=== PATIENT | female | born 1995 | race Caucasian/White ===

== ENCOUNTER → 2017-02-22 | Outpatient (CLI) | payer BC ==
--- NOTE | 2017-02-22 15:21 | US ---
EXAMINATION TYPE: US OB <= 14 wk fetus DATE OF EXAM: 02/22/2017 COMPARISON: NONE CLINICAL HISTORY: 21-year-old female O76.1 Absent Heart Tones. ; smoker EXAM PERFORMED: Transabdominal (TA) FINDINGS: EXAM MEASUREMENTS: GESTATIONAL AGE / DATING Physician Established: (14 weeks/4 days) EDC: 08/19/2017 Dates by LMP: (14 weeks/4 days) EDC: 08/19/2017 Dates by First Scan: No previous this is first scan Dates by Current Scan for: (8 weeks/3 days) EDC: 10/01/2017 MATERNAL ANATOMY Uterus: 10.1 x 6.1 x 5.6cm Right Ovary: 2.6 x 1.6 x 1.9cm Left Ovary: 2.1 x 1.4 x 1.4cm Post CDS / Adnexa: wnl Presence of free fluid: no Presence of corpus luteal cyst: in right ovary = 1.6 x 1.3 x 1.1cm Presence of subchorionic bleed: no An early expending amniotic sac is identified. GESTATION / SURVEY CRL: 1.9cm (8 weeks/3 days) Yolk Sac (normal less than 6mm): not seen Heart Rate: 174 bpm first assessment; 167bpm second assessment Rhythm: Normal IUP: Viable IUP Date of LMP: 11/12/2016 Beta HcG (if available): NA ROD GREASER NOTES: Single, live IUP,8 weeks/3 days, EDC: ; HR 174bpm. Tech findings called otf Azul at Dr Cantu's Office and patient was sent back to her office per order instructions. IMPRESSION: 1. Single live intrauterine with gestational age of 8 weeks 3 days by crown-rump length. Fi ndings are discordant with gestational age by LMP probably on the basis of inaccurate recall. Short i nterval follow-up can be considered especially given the heart rate at the upper limits of norm al. 2. Otherwise, complete survey is recommended at 18-20 weeks.
== END | disposition home or self-care (01) ==
LOC: RADUSWWP 14:15
PROVIDERS: ATTEND Obstetrics & Gynecology
DX: O76 Abnormality in fetal heart rate and rhythm complicating labor and delivery (principal); Z3A.08 8 weeks gestation of pregnancy
CPT/HCPCS: 76801

== ENCOUNTER 2017-03-29 21:33 | Emergency (ER) | payer BC ==
[2017-03-29 21:37] VITALS: RESP 18
--- NOTE | 2017-03-29 22:04 | ED ---
Female Urogenital HPI - General Chief complaint: Vaginal Bleeding Stated complaint: 13 weeks /Bleeding Time Seen by Provider: 03/29/17 22:03 Source: patient Mode of arrival: ambulatory Limitations: no limitations - History of Present Illness Initial comments: Patient 13 weeks , , presents with vaginal spotting for the past 4 hours. Patient states she noticed small amounts of blood when she has urinated over the past 4 hours. She denies recent sex or trauma to the genital region. Patient denies abdominal pain. Denies fevers, chills, vaginal discharge, diarrhea, constipation, blood in stools, pelvic pain. Complaint: vaginal bleeding - Related Data Home Medications Medication Instructions Recorded Confirmed Inw-Okug-Vvssd Acid 1 cap PO DAILY 03/29/17 03/29/17 [-U Capsule (formulary)] Allergies Allergy/AdvReac Type Severity Reaction Status Date / Time No Known Allergies Allergy Verified 03/29/17 22:04 Review of Systems ROS Statement: Those systems with pertinent positive or pertinent negative responses have been documented in the HPI. ROS Other: All systems not noted in ROS Statement are negative. Constitutional: Denies: fever, chills ENT: Denies: congestion Respiratory: Denies: cough, dyspnea Cardiovascular: Denies: chest pain, palpitations, dyspnea on exertion, syncope Endocrine: Denies: fatigue Gastrointestinal: Denies: abdominal pain, nausea, vomiting, diarrhea, constipation, hematemesis, melena, hematochezia Genitourinary: Reports: hematuria. Denies: urgency, dysuria, frequency, discharge Musculoskeletal: Denies: back pain Skin: Denies: rash, change in color Neurological: Denies: headache, weakness Past Medical History Past Medical History: No Reported History History of Any Multi-Drug Resistant Organisms: None Reported Past Surgical History: No Surgical Hx Reported Past Psychological History: No Psychological Hx Reported Smoking Status: Current every day smoker Past Alcohol Use History: None Reported Past Drug Use History: None Reported General Exam - General Exam Comments Initial Comments: Sitting up in bed smiling. No acute distress. Conversing normally. Calm, pleasant. Well appearing. Well-groomed well-dressed. Not appear in pain Limitations: no limitations General appearance: alert, in no apparent distress Head exam: Present: atraumatic, normocephalic Eye exam: Present: normal appearance, PERRL, EOMI ENT exam: Present: mucous membranes moist Neck exam: Present: normal inspection Respiratory exam: Present: normal lung sounds bilaterally. Absent: respiratory distress, wheezes, rales Cardiovascular Exam: Present: regular rate, normal rhythm GI/Abdominal exam: Present: soft, distended (Gravid). Absent: tenderness, guarding, rebound, rigid External exam: Present: normal external exam Speculum exam: Present: vaginal bleeding, other (Cervix closed. Appropriate tenderness. No masses appreciated. Small blood clot at cervical os. No active bleeding.). Absent: vaginal discharge Extremities exam: Present: normal inspection Back exam: Present: normal inspection Neurological exam: Present: alert, oriented X3 Psychiatric exam: Present: normal affect, normal mood Skin exam: Present: warm, dry, intact, normal color. Absent: rash, cyanosis, erythema, pallor Course Vital Signs 03/29/17 21:34 Temperature 98.2 F Pulse Rate 86 Respiratory 18 Rate Blood Pressure 121/71 O2 Sat by Pulse 100 Oximetry Medical Decision Making - Medical Decision Making Blood pressure within normal limits, heart rate within normal range. Patient very well appearing on examination. She states she had confirmed by ultrasound in late February. Hemoglobin 11. Spoke with lab, state patient's blood type is B-. Patient confirms she also thinks her blood type is B-. We'll give shot Rhogam UA negative for infection Bedside ultrasound done, movement intact, strong heartbeat visualized, shown to mother who confirm she sees strong heartbeat. Discussed results with patient. Discussed increased risk of spontaneous miscarriage. Pelvic rest until cleared by OB. Patient agrees to follow up with her OB physician tomorrow. Return to ER if new or worsening symptoms including increased bleeding, abdominal pain. All questions answered. - Lab Data Result diagrams: 03/29/17 22:25 03/29/17 22:25 Lab Results 03/29/17 03/29/17 03/29/17 Range/Units 22:25 22:25 22:25 WBC 7.0 (3.8-10.6) k/uL RBC 3.76 L (3.80-5.40) m/uL Hgb 11.1 L (11.4-16.0) gm/dL Hct 33.8 L (34.0-46.0) % MCV 89.8 (80.0-100.0) fL MCH 29.5 (25.0-35.0) pg MCHC 32.8 (31.0-37.0) g/dL RDW 12.8 (11.5-15.5) % Plt Count 250 (150-450) k/uL Neutrophils % 62 % Lymphocytes % 25 % Monocytes % 9 % Eosinophils % 2 % Basophils % 0 % Neutrophils # 4.3 (1.3-7.7) k/uL Lymphocytes # 1.7 (1.0-4.8) k/uL Monocytes # 0.7 (0-1.0) k/uL Eosinophils # 0.1 (0-0.7) k/uL Basophils # 0.0 (0-0.2) k/uL PT (9.0-12.0) sec INR (<1.2) APTT (22.0-30.0) sec Sodium 137 (137-145) mmol/L Potassium 3.7 (3.5-5.1) mmol/L Chloride 105 (98-107) mmol/L Carbon Dioxide 22 (22-30) mmol/L Anion Gap 10 mmol/L BUN 8 (7-17) mg/dL Creatinine 0.50 L (0.52-1.04) mg/dL Est GFR (MDRD) Af Amer >60 (>60 ml/min/1.73 sqM) Est GFR (MDRD) Non-Af >60 (>60 ml/min/1.73 sqM) Glucose 91 (74-99) mg/dL Calcium 9.6 (8.4-10.2) mg/dL Urine Color Urine Appearance (Clear) Urine pH (5.0-8.0) Ur Specific [place] (1.001-1.035) Urine Protein (Negative) Urine Glucose (UA) (Negative) Urine Ketones (Negative) Urine Blood (Negative) Urine Nitrite (Negative) Urine Bilirubin (Negative) Urine Urobilinogen (<2.0) mg/dL Ur Leukocyte Esterase (Negative) Urine RBC (0-5) /hpf Urine WBC (0-5) /hpf Ur Squamous Epith Cells (0-4) /hpf Blood Type B Negative Blood Type Confirm Blood Type Recheck CABO Indicated Antibody Screen NEGATIVE Spec Expiration Date 04/01/2017232403/29/17 03/29/17 03/29/17 Range/Units 22:25 23:15 23:35 WBC (3.8-10.6) k/uL RBC (3.80-5.40) m/uL Hgb (11.4-16.0) gm/dL Hct (34.0-46.0) % MCV (80.0-100.0) fL MCH (25.0-35.0) pg MCHC (31.0-37.0) g/dL RDW (11.5-15.5) % Plt Count (150-450) k/uL Neutrophils % % Lymphocytes % % Monocytes % % Eosinophils % % Basophils % % Neutrophils # (1.3-7.7) k/uL Lymphocytes # (1.0-4.8) k/uL Monocytes # (0-1.0) k/uL Eosinophils # (0-0.7) k/uL Basophils # (0-0.2) k/uL PT 9.8 (9.0-12.0) sec INR 1.0 (<1.2) APTT 23.4 (22.0-30.0) sec Sodium (137-145) mmol/L Potassium (3.5-5.1) mmol/L Chloride (98-107) mmol/L Carbon Dioxide (22-30) mmol/L Anion Gap mmol/L BUN (7-17) mg/dL Creatinine (0.52-1.04) mg/dL Est GFR (MDRD) Af Amer (>60 ml/min/1.73 sqM) Est GFR (MDRD) Non-Af (>60 ml/min/1.73 sqM) Glucose (74-99) mg/dL Calcium (8.4-10.2) mg/dL Urine Color Colorless Urine Appearance Clear (Clear) Urine pH 6.5 (5.0-8.0) Ur Specific [place] 1.002 (1.001-1.035) Urine Protein Negative (Negative) Urine Glucose (UA) Negative (Negative) Urine Ketones Negative (Negative) Urine Blood Small H (Negative) Urine Nitrite Negative (Negative) Urine Bilirubin Negative (Negative) Urine Urobilinogen <2.0 (<2.0) mg/dL Ur Leukocyte Esterase Negative (Negative) Urine RBC <1 (0-5) /hpf Urine WBC <1 (0-5) /hpf Ur Squamous Epith Cells 1 (0-4) /hpf Blood Type Blood Type Confirm B Negative Blood Type Recheck Antibody Screen Spec Expiration Date Disposition Clinical Impression: Threatened Disposition: HOME SELF-CARE Condition: Good Instructions: Threatened Miscarriage (ED) Additional Instructions: Follow-up with your OB doctor tomorrow. Return to ER if new or worsening symptoms including abdominal pain, increased bleeding. Referrals: None,Stated [Primary Care Provider] - 1-2 days
[2017-03-29 22:41] LABS: Basophils % (A) 0 %; Eosinophils # (A) 0.1 k/uL (0-0.7); Eosinophils % (A) 2 %; HCT 33.8 % (34.0-46.0); HGB 11.1 gm/dL (11.4-16.0); Lymphocytes # (A) 1.7 k/uL (1.0-4.8); Lymphocytes % (A) 25 %; MCH 29.5 pg (25.0-35.0); MCHC 32.8 g/dL (31.0-37.0); MCV 89.8 fL (80.0-100.0); Mean Platelet Volume 6.9; Monocytes # (A) 0.7 k/uL (0-1.0); Monocytes % (A) 9 %; Neutrophils # (A) 4.3 k/uL (1.3-7.7); Neutrophils % (A) 62 %; Platelet Count 250 k/uL (150-450); RBC 3.76 m/uL (3.80-5.40); RDW 12.8 % (11.5-15.5)
[2017-03-29 22:48] LABS: Anion Gap 10 mmol/L; Blood Urea Nitrogen 8 mg/dL (7-17); Calcium 9.6 mg/dL (8.4-10.2); Carbon Dioxide 22 mmol/L (22-30); Chloride 105 mmol/L (98-107); Glucose 91 mg/dL (74-99); Potassium 3.7 mmol/L (3.5-5.1); Sodium 137 mmol/L (137-145)
[2017-03-29 22:57] LABS: Partial Thromboplastin Time 23.4 sec (22.0-30.0); Prothrombin Time 9.8 sec (9.0-12.0)
[2017-03-29] MEDS ORDERED: Rhogam IMMUNE GLOBULIN 1,500 UNIT/1 ML IM ONE (23:19)
[2017-03-29 23:53] LABS: Appearance,Urine Clear (Clear); Bilirubin,Urine Negative (Negative); Blood,Urine Small (Negative); Color,Urine Colorless; Glucose,Urine (UA) Negative (Negative); Ketones,Urine Negative (Negative); Leukocyte Esterase,Urine Negative (Negative); Nitrite,Urine Negative (Negative); PH, Urine 6.5 (5.0-8.0); Protein,Urine Negative (Negative); RBC,Urine <1 /hpf (0-5); Specific Gravity,Urine 1.002 (1.001-1.035); Squamous Epithelial Cell,Urine 1 /hpf (0-4); Urobilinogen,Urine <2.0 mg/dL (<2.0); WBC,Urine <1 /hpf (0-5)
[2017-03-30 00:19] VITALS: BP 112/61; PULSE 72; TEMP 98
== END 2017-03-30 00:17 | disposition home or self-care (01) ==
LOC: EC 21:33
DX: O20.0 Threatened abortion (principal); O99.331 Smoking (tobacco) complicating pregnancy, first trimester; F17.200 Nicotine dependence, unspecified, uncomplicated; Z79.899 Other long term (current) drug therapy; Z67.21 Type B blood, Rh negative; Z3A.13 13 weeks gestation of pregnancy
CPT/HCPCS: 36415; 86900; 86901; 80048; 85025; 85610; 85730; 86850; 81001; 87086; 99284; 96372; 90384; J2791

== ENCOUNTER → 2017-03-30 | Outpatient (CLI) | payer BC ==
--- NOTE | 2017-03-30 16:34 | US ---
EXAMINATION TYPE: US OB <= 14 wk fetus DATE OF EXAM: 03/30/2017 COMPARISON: US CLINICAL HISTORY: Bleeding O46.92. Patient stated vaginal bleeding noted x 2 days and noted after li fting case of water: ; smoker. EXAM PERFORMED: Transabdominal (TA) EXAM MEASUREMENTS: GESTATIONAL AGE / DATING Physician Established: (13 weeks/4 days) EDC: 10/01/2017 Dates by LMP: not concordant with first US EDC Dates by First Scan: (13 weeks/4 days) EDC: 10/01/2017 Dates by Current Scan for: (13 weeks/4 days) EDC: 10/01/2017 MATERNAL ANATOMY Uterus: 12.9 x 10.5 x 8.0cm Right Ovary: not seen on US today Left Ovary: not seen today Post CDS / Adnexa: wnl Presence of free fluid: no Presence of corpus luteal cyst: no ovary seen today Presence of subchorionic bleed: no GESTATION / SURVEY CRL: 7.4 (13 weeks/4 days) Yolk Sac (normal less than 6mm): not seen today Heart Rate: 139 bpm Rhythm: Normal IUP: Viable, single IUP Nuchal Translucency 10-14wks (normal less than 3mm): 0.9mm Date of LMP: patient stated on last US LMP was 11/12/2016 Beta HcG (if available): NA Single, live IUP,13 weeks/4 days, EDC: 10/01/2017, HR 139bpm; no subchorionic bleed is seen by US denise tran. IMPRESSION: 1. Single live intrauterine with a sonographic gestational age of 13 weeks and 4 days and e stimated date of delivery of 10/01/2017, concordant with the physician established dates. 2. Heart rate is now unremarkable at 139 bpm as this was previously a prior limits of normal on the p rior exam.
== END | disposition home or self-care (01) ==
LOC: RADUSMAIN 15:45
PROVIDERS: ATTEND Obstetrics & Gynecology
DX: O46.92 Antepartum hemorrhage, unspecified, second trimester (principal); Z3A.14 14 weeks gestation of pregnancy
CPT/HCPCS: 76801; 76813

== ENCOUNTER 2017-08-09 15:08 | Outpatient (CLI) | payer BC, OTHER ==
[2017-08-09 15:51] LABS: Appearance,Urine Cloudy (Clear); Bacteria,Urine Occasional /hpf; Bilirubin,Urine Negative (Negative); Blood,Urine Negative (Negative); Color,Urine Light Yellow; Glucose,Urine (UA) Negative (Negative); Ketones,Urine Negative (Negative); Leukocyte Esterase,Urine Small (Negative); Mucus,Urine Rare /hpf; Nitrite,Urine Negative (Negative); Protein,Urine Negative (Negative); RBC,Urine 1 /hpf (0-5); Specific Gravity,Urine 1.006 (1.001-1.035); Squamous Epithelial Cell,Urine 7 /hpf (0-4); Urobilinogen,Urine <2.0 mg/dL (<2.0); WBC,Urine 8 /hpf (0-5)
[2017-08-09 16:29] VITALS: BP 128/66; PULSE 91; RESP 16; TEMP 97.8
--- NOTE | 2017-09-07 12:21 | P.MSEPDOC ---
Presenting Problems - Arrival Data Date of Arrival on Unit: 08/09/17 Time of Arrival on Unit: 15:45 Mode of Transport: Ambulatory - Complaint OB-Reason for Admission/Chief Complaint: Other Medical History - Information : 1 Para: 0 Term: 0 : 0 Abortions: Spontaneous or Elective: 0 Number of Living Children: 0 - Gestational Age Gestational Age by KARIN (wks/days): 32 Weeks and 3 Days Review of Systems - Review of Systems Constitutional: No problems Breast: No problems ENT: No problems Cardiovascular: No problems Respiratory: No problems Gastrointestinal: No problems Genitourinary: No problems Musculoskeletal: No problems Neurological: No problems Skin: No problems Vital Signs - Temperature Temperature: 97.8 F Temperature Source: Temporal Artery Scan - Pulse Right Brachial Pulse Rate: 91 Pulse Assessment Method: Automatic Cuff - Respirations Respiratory Rate: 16 Oxygen Delivery Method: Room Air - Blood Pressure Right Arm Blood Pressure: 128/66 Blood Pressure Mean: 86 Blood Pressure Source: Automatic Cuff Medical Screen Scoring (Pre) - Cervical Exam Dilation: 0 cm = 0 Membranes: Intact - Uterine Contractions Frequency: N/A Duration: N/A Intensity: N/A - Maternal Vital Signs Maternal Temperature: N/A Maternal Blood Pressure: N/A Signs of Preeclampsia: N/A Maternal Respirations: N/A - Pain Assessment Pain Scale Used: Numeric (1 - 10) Pain Intensity: 0 - Assessment Baseline FHR: 135 Heart Rate - NICHD Category: Category I (Normal) = 0 NST: Reactive Position: N/A Station: N/A - Total Score Total Score (Pre): 0 - Level of Risk Level of Risk: Low (0-5) Physician Notification (Pre) - Physician Notified Physician Notified Date: 08/09/17 Physician Notified Time: 16:26 Physician/Practitioner Notifed:: rip Spoke With: rip New Order Received: Yes - Notification Comment Comment: reported pt visit, c/o lower abd pain while standing at work, change in vaginal discharge, and constipation, pt may be discharged home, follow up at scheduled appointment on with dr rajput. ffn to be sent, advise on stool softeners Disposition - Disposition OB Disposition: Discharge to home Discharge Date: 08/09/17 Discharge Time: 16:29 I agree with the RN Medical Screening Exam: Yes Risk & Benefit of care provided described in d/c instruction: Yes Diagnosis: RELATED CONDITIONS, UNSPECIFIED, THIRD TRIMESTER
== END 2017-08-09 16:31 | disposition home or self-care (01) ==
LOC: FBPOP 15:08
PROVIDERS: ATTEND Obstetrics & Gynecology
DX: O26.93 Pregnancy related conditions, unspecified, third trimester (principal); Z3A.32 32 weeks gestation of pregnancy
CPT/HCPCS: 59025; 81001; 82731; 84112; 99213

== ENCOUNTER 2017-09-27 16:59 | Inpatient (IN) | payer BC, OTHER ==
[2017-09-27 18:45] LABS: Appearance,Urine Clear (Clear); Bacteria,Urine Occasional /hpf; Bilirubin,Urine Negative (Negative); Blood,Urine Small (Negative); Color,Urine Light Yellow; Glucose,Urine (UA) Negative (Negative); Ketones,Urine Negative (Negative); Leukocyte Esterase,Urine Moderate (Negative); Mucus,Urine Rare /hpf; Nitrite,Urine Negative (Negative); PH, Urine 6.5 (5.0-8.0); Protein,Urine Negative (Negative); RBC,Urine 1 /hpf (0-5); Specific Gravity,Urine 1.006 (1.001-1.035); Squamous Epithelial Cell,Urine 3 /hpf (0-4); Uric Acid 4.8 mg/dL (3.7-7.4); Urobilinogen,Urine <2.0 mg/dL (<2.0); WBC,Urine 7 /hpf (0-5)
[2017-09-27 18:52] LABS: Basophils % (A) 0 %; Eosinophils # (A) 0.1 k/uL (0-0.7); Eosinophils % (A) 1 %; HCT 36.4 % (34.0-46.0); Lymphocytes # (A) 1.4 k/uL (1.0-4.8); Lymphocytes % (A) 13 %; MCV 84.8 fL (80.0-100.0); Mean Platelet Volume 6.8; Monocytes # (A) 0.7 k/uL (0-1.0); Monocytes % (A) 6 %; Neutrophils # (A) 8.3 k/uL (1.3-7.7); Neutrophils % (A) 78 %; Platelet Count 275 k/uL (150-450); RBC 4.29 m/uL (3.80-5.40); WBC 10.6 k/uL (3.8-10.6)
[2017-09-27] MEDS ORDERED: TERBUTALINE 1 MG/ML VIAL SQ PRN (18:54)
[2017-09-27] MEDS ORDERED: METHYLERGONOVINE 0.2 MG/ML 1 ML AMP IM PRN (18:54)
[2017-09-27] MEDS ORDERED: LIDOCAINE 1% (PF) 10 MG/ML (30 ML SDV) SQ PRN (18:54)
[2017-09-27] MEDS ORDERED: CARBOPROST TROMETHAMINE 250 MCG/ML 1 ML AMP IM PRN (18:54)
[2017-09-27] MEDS ORDERED: OXYTOCIN 10 UNIT/ML 1 ML VIAL IM PRN (18:54)
[2017-09-27 18:59] VITALS: BMI 25.2
[2017-09-27] MEDS: LACTATED RINGERS 1,000 ML IV SCH ×2 (19:06→19:58)
[2017-09-27] MEDS ORDERED: ROPIVACAINE 100 MG, fentaNYL (PF) 200 MCG in SODIUM CHLORIDE 0.9% 76 ML EPIDURAL ONE (19:29)
--- NOTE | 2017-09-27 21:09 | P.HPOB ---
History of Present Illness H&P Date: 09/27/17 Chief Complaint: 39-3/7 weeks, early labor The patient is a 22-year-old 1 para 0 admitted at 39-3/7 weeks as established by second trimester ultrasound. She is admitted with some initially high blood pressures which have normalized during the labor process and was found to make cervical change in triage over the course of 1-2 hours from 3-4 cm. Her has been uncomplicated though she is Rh- and received RhoGAM at approximately 28 weeks. She had an abnormal Pap showing ASCUS with positive HPV which will be repeated . On labor and delivery, all signs reassuring. [place] strep status is negative. Obstetrical history: 1 para 0 with current statistics listed in history present illness. EDC of 10/01/2017 was established by second trimester ultrasound. Laboratory workup done traits of blood type of B- with a negative antibody screen. Rubella status is immune. Remainder of the laboratory workup was within normal limits aside from her Pap smear showing ASCUS, positive HPV. One hour Glucola was within normal limits and group B strep status is negative. Gynecologic history: Unremarkable with no history of any infections to include STDs. Review of Systems Review of systems is confined to history of present illness. Past Medical History Past Medical History: No Reported History History of Any Multi-Drug Resistant Organisms: None Reported Past Surgical History: No Surgical Hx Reported Past Anesthesia/Blood Transfusion Reactions: No Reported Reaction Past Psychological History: No Psychological Hx Reported Smoking Status: Current every day smoker Past Alcohol Use History: None Reported Past Drug Use History: None Reported - Past Family History Mother Additional Family Medical History / Comment(s): clubbed fingers Medications and Allergies Home Medications Medication Instructions Recorded Confirmed Type Pdi-Mgun-Uidhu Acid 1 cap PO DAILY 03/29/17 09/27/17 History [-U Capsule (formulary)] Allergies Allergy/AdvReac Type Severity Reaction Status Date / Time No Known Allergies Allergy Verified 03/29/17 22:04 Exam Vital Signs Temp Pulse Resp BP Pulse Ox 09/27/17 18:56 98.1 F 97 16 133/90 97 09/27/17 18:40 98.1 F 97 17 133/90 97 Intake and Output 09/27/17 09/27/17 09/27/17 06:59 14:59 22:59 Other: Weight 62.596 kg In general, this is a well-developed, well-nourished white female in no acute distress. Her heart has a regular rhythm and rate without murmur. Her lungs are clear to auscultation bilaterally in all so. Her abdomen is gravid, nondistended, has normal active bowel sounds, is soft, nontender, and without any palpable masses aside from the uterine fundus. Her extremities are without any cyanosis, clubbing, or significant edema and are nontender to palpation bilaterally. Digital cervical examination demonstrates her cervix to be approximate 6 cm dilated, 90% effaced, with the vertex in presentation at -1-2 station. Artificial rupture of membranes is carried out demonstrating clear fluid. Results Result Diagrams: 09/27/17 18:20 Abnormal Lab Results - Last 24 Hours (Table) 09/27/17 09/27/17 Range/Units 18:20 18:20 Neutrophils # 8.3 H (1.3-7.7) k/uL Urine Blood Small H (Negative) Ur Leukocyte Esterase Moderate H (Negative) Urine WBC 7 H (0-5) /hpf Urine Bacteria Occasional H (None) /hpf Urine Mucus Rare H (None) /hpf Assessment and Plan (1) Active labor at term Current Visit: Yes Status: Acute Code(s): QIZ0307 - SNOMED Code(s): 97275451 (2) Rh negative status during Current Visit: Yes Status: Acute Code(s): O09.899 - SUPERVISION OF OTHER HIGH RISK PREGNANCIES, UNSP TRIMESTER; Z67.91 - UNSPECIFIED BLOOD TYPE, RH NEGATIVE SNOMED Code(s): 667368105 Plan: The patient is admitted for active management of labor. She is laboring well on her own at this time. Artificial rupture of membranes has been carried out. An epidural catheter has been placed for analgesia. She will have close maternal and surveillance and expectant management will be practiced.
[2017-09-28] MEDS ORDERED: WITCH HAZEL 1 EACH MED..PAD TOPICAL PRN (01:23)
[2017-09-28] MEDS ORDERED: diphenhydrAMINE 25 MG CAP PO PRN (01:23)
[2017-09-28] MEDS ORDERED: BENZOCAINE/MENTHOL SPRAY 1 GM/SPRAY AEROSOL TOPICAL PRN (01:23)
[2017-09-28] MEDS ORDERED: HYDROcodone/APAP 5-325MG 1 EACH TAB PO PRN (01:23)
[2017-09-28] MEDS ORDERED: diphenhydrAMINE 50 MG CAP PO PRN (01:23)
[2017-09-28] MEDS ORDERED: diphenhydrAMINE 50 MG/ML 1 ML VIAL IVP PRN ×2 (01:23)
[2017-09-28] MEDS ORDERED: SIMETHICONE 80 MG CHEWABLE PO PRN (01:23)
[2017-09-28] MEDS ORDERED: ZOLPIDEM 5 MG TAB PO PRN (01:23)
[2017-09-28] MEDS ORDERED: ACETAMINOPHEN TAB 325 MG TAB PO PRN (01:23)
[2017-09-28] MEDS ORDERED: LANOLIN CREAM 5 GM TUBE TOPICAL PRN (01:23)
[2017-09-28] MEDS ORDERED: HYDROCORTISONE 2.5% RECTAL CREAM 30 GM TUBE RECTAL PRN (01:23)
--- NOTE | 2017-09-28 01:28 | P.PROBDLV ---
Vaginal Delivery Note - . Vaginal Delivery Note: The patient is a 22-year-old 1 para 0 admitted at 39-4/7 weeks by early second trimester ultrasound. She is admitted in early labor with all signs reassuring. Her has been uncomplicated though she is Rh- and received RhoGAM at 28 weeks. On labor and delivery, she had an epidural catheter placed for analgesia and then underwent artificial rupture of membranes demonstrating clear fluid. She made consistent and average progress through the active phase of labor to complete at which time she had minimal urge to push. She was allowed to labor down for a short period of time until urge was present. She then pushed over the course of approximately 30 minutes to a normal spontaneous vaginal delivery of a viable 6 lbs. 6 oz. baby girl with Apgars of 4 at 1 minute, 5 at 5 minutes and 8 at 10 minutes delivered in the right occiput anterior position. There was some terminal bradycardia during pushing and the infant was taken to the nursery for evaluation where she promptly had improvement in her status. The placenta was delivered spontaneously, intact, and grossly normal with a grossly normal three-vessel cord inserted approximately 1 cm from the placental margin. There was a first- degree right labial laceration which was reapproximated under local anesthesia with a single [id number] stitch of 3-0 chromic catgut without difficulty. There were no other lacerations present. Estimated blood loss for the case is approximately 150 mL. There were no complications. All sponge, instrument, and needle counts were correct. Both mother and are resting comfortably in recovery to the remains and special care nursery for observation at this time.
[2017-09-28] MEDS ORDERED: OXYTOCIN 20 UNITS/1000 ML NS 1,000 ML IV SCH (01:30)
[2017-09-28] MEDS: SENNOSIDES-DOCUSATE SODIUM 1 EACH TAB PO SCH ×2 (09:34→20:40)
[2017-09-28] MEDS ORDERED: Rhogam IMMUNE GLOBULIN 1,500 UNIT/1 ML IM ONE (12:10)
[2017-09-28] MEDS: IBUPROFEN 600 MG TAB PO PRN (16:23)
--- NOTE | 2017-09-29 08:16 | P.DS ---
Providers Date of admission: 09/27/17 18:39 Expected date of discharge: 09/29/17 Attending physician: Susy Cantu Primary care physician: Stated None Hospital Course: This is a 22-year-old white female 1 para 0 EDC 10/01/2017 at 39-4/7 weeks' gestation. Patient presented from home with strong regular uterine contractions. She was monitored in the triage area and was noted to be in early active labor. She was therefore admitted. Rubella status is immune, blood type B negative, group B strep cultures negative. Please see dictated history and physical for details. Patient progressed through labor and went on to deliver vaginally a liveborn female with scores of 45 and 8 at one and 5 and 10 minutes respectively. She was in the right occiput anterior position, there was a small first-degree right labial laceration easily repaired, and an estimated blood loss of the 150 mL's. weighed 6 lbs. 6 oz. or 2890 g. Please see dictated delivery note for details. This morning the patient is doing well. She is voiding, ambulating and passing flatus without difficulty. Vital signs are stable and she is afebrile. Fundus is firm and in the midline, symmetric and 18 week size. Extremities are negative for edema. Breasts are not engorged. infant is doing well. Patient is judged to be in excellent condition for discharge home. Patient will follow-up with me in the office in 6 weeks. I have reminded her no intercourse, tampons or douching. She will use [id number]-kax-[id number] ibuprofen products as needed for pain, 200 mg pills, 3 every 6 hours as needed. We have contemplated options for contraception and we will discuss this further in the office. She is reminded no heavy lifting, no car driving for 2 weeks, and to use a clean pad only. Infant will follow-up with manual machinist as per recommendations. Patient Condition at Discharge: Good Plan - Discharge Summary Discharge Rx Participant: No New Discharge Prescriptions: No Action Aov-Xqao-Buvrp Acid [-U Capsule (formulary)] 1 cap PO DAILY Discharge Medication List Xvn-Mtng-Ycauc Acid [-U Capsule (formulary)] 1 cap PO DAILY [History] Discharge Disposition: HOME SELF-CARE
[2017-09-29] MEDS: SENNOSIDES-DOCUSATE SODIUM 1 EACH TAB PO SCH (09:52)
[2017-09-29] MEDS: IBUPROFEN 600 MG TAB PO PRN (09:53)
[2017-09-29 09:59] VITALS: BP 126/87; PULSE 60; RESP 16; TEMP 97.8
== END 2017-09-29 14:05 | disposition home or self-care (01) | DRG 775 ==
LOC: FBPOP 16:59 → 4FBP 18:39
PROVIDERS: ADMIT Obstetrics & Gynecology; ATTEND Obstetrics & Gynecology
PROC: 10E0XZZ Delivery of Products of Conception, External Approach (ICD-10-PCS; principal; 2017-09-28)
PROC: 0HQ9XZZ Repair Perineum Skin, External Approach (ICD-10-PCS; 2017-09-28)
PROC: 00HU33Z Insertion of Infusion Device into Spinal Canal, Percutaneous Approach (ICD-10-PCS; 2017-09-28)
PROC: 3E0R3BZ Introduction of Anesthetic Agent into Spinal Canal, Percutaneous Approach (ICD-10-PCS; 2017-09-28)
DX: O26.893 Other specified pregnancy related conditions, third trimester (principal); O76 Abnormality in fetal heart rate and rhythm complicating labor and delivery; Z37.0 Single live birth; O99.334 Smoking (tobacco) complicating childbirth; O70.0 First degree perineal laceration during delivery; F17.200 Nicotine dependence, unspecified, uncomplicated; Z3A.39 39 weeks gestation of pregnancy; Z67.91 Unspecified blood type, Rh negative; Z82.69 Family history of other diseases of the musculoskeletal system and connective tissue
CPT/HCPCS: 81001; 84450; 84460; 84550; 85025; 85461; 88307

== ENCOUNTER 2020-06-10 19:06 | Emergency (ER) | payer BC, OTHER ==
[2020-06-10] MEDS ORDERED: KETOROLAC 15 MG/ML 1 ML VIAL IM STA (19:56)
--- NOTE | 2020-06-10 20:02 | ED ---
Fall HPI - General Chief Complaint: Fall Stated Complaint: Fall down the stairs, 10 steps, near syncope Time Seen by Provider: 06/10/20 19:39 Source: patient, family (mom at bedside) Mode of arrival: wheelchair - History of Present Illness Initial Comments: 25-year-old white female patient presents with her mother complaining of falling down 10 steps of her apartment building headfirst going down on her belly. Patient states no LOC ambulate back to her apartment mom states that she called her 4 hours later with right rib pain. Mom concerned for broken ribs and/or punctured lung. Patient denies shortness of breath. Oxygen saturation 100%, heart rate 121, patient complaining of 9/10 pain. MD Complaint: fall -: hour(s) (4) Fall From: down stairs (#) (10) When Fall Occurred: 4-6 hours [employer] Fall Witnessed: no Place Fall Occurred: home Loss of Consciousness: none Prolonged Down Time?: no Symptoms Prior to Fall: none Location: other (Right ribs) Severity scale (1-10): 9 Context: tripped/slipped (This is an apartment tell headfirst down 10 steps, states went down on her stomach) Associated Symptoms: denies - Related Data Home Medications Medication Instructions Recorded Confirmed [id number] Acid 1 cap PO DAILY 03/29/17 09/27/17 [-U Capsule (formulary)] Previous Rx's Medication Instructions Recorded Cyclobenzaprine [Flexeril] 5 mg PO TID PRN #3 tablet 06/10/20 Ibuprofen [Motrin] 400 mg PO Q8HR PRN #20 tab 06/10/20 Allergies Allergy/AdvReac Type Severity Reaction Status Date / Time No Known Allergies Allergy Verified 03/29/17 22:04 Review of Systems ROS Statement: Those systems with pertinent positive or pertinent negative responses have been documented in the HPI. ROS Other: All systems not noted in ROS Statement are negative. Past Medical History Past Medical History: No Reported History History of Any Multi-Drug Resistant Organisms: None Reported Past Surgical History: No Surgical Hx Reported Past Anesthesia/Blood Transfusion Reactions: No Reported Reaction Past Psychological History: No Psychological Hx Reported Smoking Status: Current every day smoker Past Alcohol Use History: None Reported Past Drug Use History: None Reported - Past Family History Mother Additional Family Medical History / Comment(s): clubbed fingers General Exam Limitations: no limitations General appearance: alert, in no apparent distress Head exam: Present: atraumatic, normocephalic, normal inspection Eye exam: Present: normal appearance, PERRL, EOMI. Absent: scleral icterus, conjunctival injection, periorbital swelling Pupils: Present: normal accommodation ENT exam: Present: normal exam, normal oropharynx, mucous membranes moist Neck exam: Present: normal inspection, full ROM. Absent: tenderness, meningismus, lymphadenopathy Respiratory exam: Present: normal lung sounds bilaterally. Absent: respiratory distress, wheezes, rales, rhonchi, stridor, chest wall tenderness, accessory muscle use Cardiovascular Exam: Present: tachycardia GI/Abdominal exam: Present: soft, normal bowel sounds. Absent: distended, tenderness, guarding, rebound, rigid, mass, bruit Extremities exam: Present: normal inspection, full ROM, normal capillary refill. Absent: tenderness, pedal edema, joint swelling, calf tenderness Back exam: Present: normal inspection, tenderness (right flank). Absent: CVA tenderness (R), CVA tenderness (L), muscle spasm, paraspinal tenderness, vertebral tenderness, rash noted Neurological exam: Present: alert, oriented X3, CN II-XII intact Psychiatric exam: Present: normal affect, normal mood Skin exam: Present: warm, dry, intact, normal color, other (yellow/green quarter sized bruise to right trapezius, 1 cm area of redness noted to right lower flank). Absent: rash, cyanosis, diaphoretic, erythema Course Vital Signs 06/10/20 19:28 Temperature 97.3 F L Pulse Rate 121 H Respiratory 16 Rate Blood Pressure 93/57 O2 Sat by Pulse 100 Oximetry Medical Decision Making - Medical Decision Making Chest x-ray negative for fractures, no pneumothorax. Patient feels better after the Toradol. Mom at bedside states she will take her home with her and return if worsening symptoms of pain, hemetaemesis or hematuria. Patient will be discharged home with Motrin and Flexeril as needed. Patient agreeable to chart. Case discussed with Dr. Adame who is agreeable with this plan. Disposition Clinical Impression: Fall Disposition: HOME SELF-CARE Condition: Fair Instructions (If sedation given, give patient instructions): Fall Prevention (ED), Contusion in Adults (ED) Prescriptions: Cyclobenzaprine [Flexeril] 5 mg PO TID PRN #3 tablet PRN Reason: Muscle Spasm Ibuprofen [Motrin] 400 mg PO Q8HR PRN #20 tab PRN Reason: Pain Is patient prescribed a controlled substance at d/c from ED?: No Referrals: None,Stated [Primary Care Provider] - 1-2 days Time of Disposition: 21:18
--- NOTE | 2020-06-10 20:54 | XR ---
EXAMINATION TYPE: XR chest 2V DATE OF EXAM: 06/10/2020 COMPARISON: NONE HISTORY: Pain status post fall. TECHNIQUE: Frontal and lateral views of the chest are obtained. FINDINGS: There is no focal air space opacity, pleural effusion, or pneumothorax seen. The cardiac silhouette size is within normal limits. The osseous structures are intact. IMPRESSION: No acute cardiopulmonary process.
[2020-06-10] MEDS ORDERED: CYCLOBENZAPRINE 5 MG TAB PO STA (21:18)
[2020-06-10 21:36] VITALS: BP 102/61; PULSE 102; RESP 18; TEMP 97.6
== END 2020-06-10 21:30 | disposition home or self-care (01) ==
LOC: EC 19:06
DX: S20.221A Contusion of right back wall of thorax, initial encounter (principal); W10.9XXA Fall (on) (from) unspecified stairs and steps, initial encounter; F17.200 Nicotine dependence, unspecified, uncomplicated
CPT/HCPCS: 71046; 99283; 96372; J1885